=== PATIENT | female | born 1960 | race Caucasian/White ===

== ENCOUNTER 2020-10-24 07:08 | Day surgery (SDC) | payer BC ==
[2020-10-24] MEDS ORDERED: Propofol 200 MG/20 ML SDV IV ONE (07:09)
[2020-10-24] MEDS ORDERED: Lidocaine 2% 5 ML SDV INJECT ONE (07:09)
[2020-10-24] MEDS ORDERED: Albuterol/Ipratropium 3.0-0.5 MG/3 ML Neb Soln NEB ONE (07:43)
[2020-10-24] MEDS ORDERED: Sodium Chloride 0.9% 10 ML Syringe FLUSH PRN (07:45)
[2020-10-24] MEDS ORDERED: Lactated Ringers 1,000 ML IV SCH (07:45)
--- NOTE | 2020-10-24 09:24 | PCM.OPNOTE ---
- General Post-Op/Procedure Note Date of Surgery/Procedure: 10/24/20 Operative Procedure(s): egd with cold forceps biopsy. colonoscopy with cold forceps biopsy Findings: gastroduodenitis rectal polyps Pre Op Diagnosis: personal hx of colon polyps. abd bloating. Post-Op Diagnosis: gastroduodenitis. rectal polyps Anesthesia Technique: [facility] [place] Surgeon: Anibal Butler Anesthesia Provider: Irma Stinson Pathology: duodenum stomach rectal polyps x 3 (hyperplastic) Complications: None Condition: Good Free Text/Narrative:: see dictation
[2020-10-24 10:23] VITALS: BP 113/76; PULSE 70
--- NOTE | 2020-10-24 12:15 | OR ---
DATE OF OPERATION: 10/24/2020 SURGEON: Anibal Butler MD PROCEDURES PERFORMED: Esophagogastroduodenoscopy with cold forceps biopsy and colonoscopy with cold forceps biopsy. PREOPERATIVE DIAGNOSES: History of abdominal bloating and personal history of colon polyps, requiring followup colonoscopy. POSTOPERATIVE DIAGNOSES: Gastroduodenitis and hyperplastic polyps of the rectum x3. INDICATIONS FOR PROCEDURE: This is a 60-year-old white female who is referred for followup colonoscopy. Last one was performed 5 years ago and adenomatous polyps were removed. In addition, the patient noticed some abdominal distention on occasion. She was offered an EGD as well. DESCRIPTION OF OPERATION: After an excellent IV sedation was administered, the bite-block was inserted. The flexible endoscope was passed without difficulty down the patient's esophagus into the stomach. The stomach was insufflated. Scope passed through the pylorus to the second portion of the duodenum and then slowly withdrawn. The following findings were noted in the first portion of the duodenum. Mild duodenitis, biopsies were taken with cold biopsy forceps. Stomach, diffuse gastritis, biopsies were taken with cold biopsy forceps and submitted in a separate container. Esophagus, GE junction measured at 40 cm and the esophagus itself was essentially unremarkable. The stomach was deflated. Scope was removed. Our attention was then turned to the patient's colon. Digital rectal exam was performed. No marked abnormality was noted. Flexible colonoscope was inserted and advanced to the cecum. The prep was excellent. The following findings were noted. Ascending colon, unremarkable. Transverse colon, unremarkable. Descending colon, unremarkable. Sigmoid, unremarkable. In the rectum, approximately 3 hyperplastic polyps were encountered, these were biopsied with cold biopsy forceps and submitted in 1 container. The patient tolerated the procedure well, was taken to recovery. It should be noted that the patient did develop a nosebleed after the EGD, this was controlled with direct pressure, and no further sequelae were evident at the conclusion of the procedure. On questioning the patient after she awoke from her sedation, she is prone to nosebleeds, so this is not a new condition for her. /[id number] /MODL
== END 2020-10-24 10:10 | disposition home or self-care (01) ==
LOC: FB.SDS 07:08
PROVIDERS: ATTEND Surgery
DX: Z12.11 Encounter for screening for malignant neoplasm of colon (principal); K62.1 Rectal polyp; K29.50 Unspecified chronic gastritis without bleeding; K29.80 Duodenitis without bleeding; E66.9 Obesity, unspecified; E11.9 Type 2 diabetes mellitus without complications; I10 Essential (primary) hypertension; J44.9 Chronic obstructive pulmonary disease, unspecified; I42.2 Other hypertrophic cardiomyopathy; F17.210 Nicotine dependence, cigarettes, uncomplicated; Z79.899 Other long term (current) drug therapy; Z79.82 Long term (current) use of aspirin; Z79.84 Long term (current) use of oral hypoglycemic drugs; Z98.890 Other specified postprocedural states; Z68.33 Body mass index [BMI] 33.0-33.9, adult
CPT/HCPCS: 00813-QZ; 82962; 88305; 88342; J2704; J7120; J7620-GY

== ENCOUNTER 2024-11-30 10:28 | Emergency (ER) | payer BC, MEDICARE ==
[2024-11-30 11:16] LABS: BASOPHILS PERCENT AUTO 0.5 % (0.2-1.5); EOSINOPHILS ABSOLUTE AUTO 0.2 x10-3/uL (0.0-0.8); EOSINOPHILS PERCENT AUTO 3.2 % (0.6-8.1); HEMOGLOBIN 13.9 g/dL (11.4-15.5); LYMPHOCYTES ABSOLUTE AUTO 1.2 x10-3/uL (1.0-4.4); MEAN CORPUSCULAR HEMOGLOBIN 31.3 pg (23.9-33.9); MEAN CORPUSCULAR HGB CONC 34.8 g/dL (31.9-34.8); MEAN CORPUSCULAR VOLUME 90.1 fL (76.7-100.5); MEAN PLATELET VOLUME 7.6 fL (7.1-12.4); MONOCYTES ABSOLUTE AUTO 0.5 x10-3/uL (0.3-1.0); MONOCYTES PERCENT AUTO 8.9 % (4.4-15.7); NEUTROPHILS ABSOLUTE AUTO 4.1 x10-3/uL (1.5-6.3); NEUTROPHILS PERCENT AUTO 67.4 % (30.8-76.2); PLATELET COUNT,PLT 262 x10(3)uL (151-488); RED BLOOD CELL COUNT 4.43 x10(6)uL (3.60-5.20); RED CELL DISTRIBUTION WIDTH 13.2 % (12.3-16.5); WHITE BLOOD CELL COUNT,WBC 6.1 x10-3/uL (3.0-10.3)
[2024-11-30 11:18] LABS: BLOOD UREA NITROGEN,BUN 8 mg/dL (7-18); BUN/CREATININE RATIO 11.4 (9-20); CALCIUM 9.7 mg/dL (8.6-10.2); CARBON DIOXIDE,CO2 31 mmol/L (21-32); CHLORIDE,CL 97 mmol/L (100-110); CREATININE 0.7 mg/dL (0.55-1.02); ESTIMATED GFR 96 mL/min (>60); GLUCOSE RANDOM 124 mg/dL (80-116); POTASSIUM,K 4.4 mmol/L (3.5-5.3); SODIUM,NA 135 mmol/L (135-145)
[2024-11-30 11:24] LABS: ALANINE AMINOTRANSFERASE,ALT 21 U/L (12-36); ALBUMIN 3.9 g/dL (3.2-4.6); ALKALINE PHOSPHATASE 98 IU/L (56-112); ASPARTATE AMNIOTRANSFERASE,AST 23 IU/L (5-25); BILIRUBIN TOTAL 0.7 mg/dL (0.1-1.3); PROTEIN TOTAL,TP 7.9 g/dL (6.0-8.0)
[2024-11-30] MEDS: Iopamidol 755 Mg/ML 100 ML Bottle IV SCH (11:28)
[2024-11-30 11:36] LABS: INR 0.99 (1.00-1.24); PROTHROMBIN TIME 10.3 sec (9.0-11.1); PTT,PARTIAL THROMBOPLSTIN TIME 29.6 SECONDS (24.4-33.2)
[2024-11-30] MEDS: Aspirin 81 MG Tab.Chew PO ONE (11:39)
[2024-11-30] MEDS: Heparin Sodium 5,000 Units/ML Vial IVPUSH ONE (12:37)
[2024-11-30] MEDS: Sodium Chloride 0.9% 10 ML Syringe FLUSH PRN (12:38)
[2024-11-30] MEDS: Heparin Sodium/0.45% NaCl 500 ML IV SCH (13:20)
[2024-11-30 14:14] VITALS: BP 184/86; PULSE 90
== END 2024-11-30 14:40 ==
LOC: FB.ED 10:28
DX: H47.011 Ischemic optic neuropathy, right eye (principal); I21.4 Non-ST elevation (NSTEMI) myocardial infarction; I10 Essential (primary) hypertension; E11.9 Type 2 diabetes mellitus without complications; E66.9 Obesity, unspecified; E78.00 Pure hypercholesterolemia, unspecified; J44.9 Chronic obstructive pulmonary disease, unspecified; Z79.899 Other long term (current) drug therapy; Z79.82 Long term (current) use of aspirin; Z79.84 Long term (current) use of oral hypoglycemic drugs; Z68.36 Body mass index [BMI] 36.0-36.9, adult
CPT/HCPCS: 36415; 70496; 70498; 80053; 82947; 83735; 83880; 84484; 85025; 85610; 85651; 85730; 86140; 93005; 96365; 96376; 99285-25; A9270-GY; J1644; Q9967